=== PATIENT | female | born 1980 | race Asian ===

== ENCOUNTER 2018-03-12 07:57 | Outpatient (CLI) | payer OTHER ==
--- NOTE | 2018-03-12 10:16 | ULT ---
SONOGRAM ABDOMEN COMPLETE: Date: 03/12/18 HISTORY: Abnormal liver function tests. FINDINGS: Gallbladder has a normal appearance without evidence of stones. Common duct is 0.3 cm. Liver unremark able without focal mass or intrahepatic biliary dilatation. No free fluid. The spleen, kidneys, and v isualized portions of the abdominal aorta, IVC, and pancreas have a normal appearance. IMPRESSION: No significant abnormalities are demonstrated. POS: TPC
== END 2018-03-12 07:58 | disposition home or self-care (01) ==
LOC: SCSULT 07:57
PROVIDERS: ATTEND Family Medicine
DX: R79.89 Other specified abnormal findings of blood chemistry (principal)
CPT/HCPCS: 76700

== ENCOUNTER 2018-06-09 13:46 | Inpatient (IN) | payer OTHER ==
[2018-06-09 14:35] LABS: Bilirubin Negative (Negative); Blood, Urine Moderate (Negative); Clarity Clear (Clear); Glucose, Urine (Dipstick) Negative (Negative); Leukocyte Negative (Negative); Nitrite Negative (Negative); Protein, Urine (Dipstick) Trace mg/dL (Neg-Trace); Urobilinogen 0.2 mg/dL (0.2-1.0)
[2018-06-09 14:38] LABS: Pregnancy Test - Urine (BHCG) Negative (Negative); Pregu Control Background? CLEAR/WHITE (CLR/WHITE); Pregu Control Bar Appear? YES (CONTROL BAR)
[2018-06-09 14:40] LABS: Bacteria/HPF None Seen HPF (None Seen); RBC/HPF 0-3 HPF (0-3); Squamous Epithelial 0-3 HPF (0-3); WBC/HPF 0-3 HPF (0-3)
[2018-06-09 14:48] LABS: ALT (SGPT) 132 U/L (8-55); AST (SGOT) 119 U/L (5-34); Albumin 3.6 g/dL (3.5-5.0); Alkaline Phosphatase 90 U/L (40-150); Anion Gap 13 mmol/L (10-20); BUN (Urea Nitrogen) 6 mg/dL (7.0-18.7); Bilirubin, Total 0.5 mg/dL (0.2-1.2); Calc. Creatinine Clearance 0 mL/min (70-130); Calcium 8.9 mg/dL (7.8-10.44); Carbon Dioxide 24 mmol/L (22-29); Chloride 100 mmol/L (98-107); Estimated GFR-MDRD Greater than 90; Globulin 4.8 g/dL (2.4-3.5); Glucose 143 mg/dL (70-105); Lipase 19 U/L (8-78); Potassium 3.7 mmol/L (3.5-5.1); Protein, Total 8.4 g/dL (6.0-8.3); Sodium 133 mmol/L (136-145)
[2018-06-09 14:50] LABS: #Basophils 0.1 thou/uL (0.0-0.2); #Lymphocytes 0.2 thou/uL (1.20-3.40); #Monocytes 0.2 thou/uL (0.11-0.59); #Neutrophils 7.1 thou/uL (1.40-6.50); %Basophils 0.7 % (0.0-1.0); %Lymphocytes 2.7 % (21.0-51.0); %Monocytes 2.9 % (0.0-10.0); %Neutrophils 93.7 % (42.0-75.0); Anisocytosis SLIGHT = 6-15 cells (100X) (0-5/hpf); Band 18 % (5-11); Elliptocytes SLIGHT = 2-5 cells (100X) (0-1/hpf); Hemoglobin 11.1 g/dL (12.0-16.0); Hypochromia SLIGHT = 6-15 cells (100X) (0-5/hpf); MDiff Complete? YES; Macrocytosis SLIGHT = 6-15 cells (100X) (0-5/hpf); Mean Corpuscular HGB CONC 30.6 g/dL (32.0-36.0); Mean Corpuscular Hemoglobin 22.1 pg (27.0-31.0); Mean Corpuscular Volume 72.1 fL (78.0-98.0); Mean Platelet Volume 9.2 fL (7.4-10.4); Microcytosis SLIGHT = 6-15 cells (100X) (0-5/hpf); Monocytes 2 % (0-10); Neutrophil 80 % (42-75); PLT Morphology Comment Appears Decreased; Platelet Count 137 thou/uL (130-400); Polychromasia SLIGHT = 2-3 cells (100X) (0-2/hpf); RBC Distribution Width 14.8 % (11.5-14.5); Red Blood Cell (RBC) Count 5.04 mill/uL (4.20-5.40); Tear Drops SLIGHT = 2-5 cells (100X) (0-1/hpf); White Blood Cell (WBC) Count 7.5 thou/uL (4.8-10.8)
--- NOTE | 2018-06-09 15:02 | RAD ---
CHEST TWO VIEW 06/09/18 HISTORY: Fever. COMPARISON: Chest two view from 2013. FINDINGS: Although faint, there appears to be some mild reticulonodular opacities throughout the lungs bilatera lly. No pneumothorax. No large effusion. The cardiac silhouette and mediastinal contours are similar. IMPRESSION: Faint reticulonodular opacities throughout the lungs may reflect early infection. POS: TPC
[2018-06-09 18:04] VITALS: BMI 26.4
[2018-06-09] MEDS ORDERED: Acetaminophen 325 MG TAB PO PRN (18:20)
[2018-06-09] MEDS: Sodium Chloride 0.9% 1,000 ML IV SCH (18:37)
[2018-06-09 18:39] LABS: Lactic Acid 2.1 mmol/L (0.5-2.2)
[2018-06-09] MEDS: Vancomycin HCl 1 GM in Premix Bag 1 BAG IVPB SCH (19:58)
[2018-06-10] MEDS: Sodium Chloride 0.9% 1,000 ML IV SCH (01:21)
--- NOTE | 2018-06-10 02:02 | HP ---
CHIEF COMPLAINT: Fever. 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 She also is on sildenafil, does suggest she has some pulmonary hypertension. She has been on longstanding Plaquenil and Medrol and states she has never been on a biological agent. The patient presented today to the emergency department. She reports to me that she has actually been having relapsing fevers and chills that will occur and then resolve immediately when she takes some Tylenol. This will not recur again for another 10-15 days. At that time, she takes more Tylenol and fever abates for another 10-15 days. This has been going on since March. Today, however, the patient noted that her heart rate rather than going up to around 100 with her fever actually went up to the 130s, so she presented to the emergency department. She has had no other symptoms associated with this other than she is developing some erythema along the right jaw line and under her chin and she has a small skin lesion that is superficially ulcerated in the left anterior chest. She has no chest pain, cough or shortness of breath and denies any dysphagia. REVIEW OF SYSTEMS: Notable for only modest weight loss; however, she reports that she continues to eat quite well. She has had no other symptoms except for those things related to her rheumatoid. PAST MEDICAL HISTORY: Notable for the rheumatoid arthritis and hypothyroidism. She also has the Raynaud's phenomenon. SURGICAL HISTORY: None. SOCIAL HISTORY: Patient denies alcohol, tobacco or drug use. She is . Her would be her surrogate decision maker should that become necessary and she is a F[employer]. She is primarily followed by Dr. Darling locally. Her smt technician is Dr. Perla Sams in the [facility] area in [place]. FAMILY HISTORY: Her mother has some hypertension. Her father remains healthy. ALLERGIES: None. MEDICATIONS: Medrol 4 mg p.o. daily, sildenafil 20 mg p.o. daily, levothyroxine 100 mcg every day, Plaquenil 200 mg p.o. daily. PHYSICAL EXAMINATION: VITAL SIGNS: Temperature is 100.0, pulse 110, respirations 16, O2 sat 100% on room air, BP 131/85. GENERAL APPEARANCE: Age appropriate female. She is in no distress. She is awake, alert, oriented, pleasant, cooperative. HEENT: PERRL. No OP lesions. NECK: Supple and symmetric without lymphadenopathy. CARDIOVASCULAR: Tachycardic without murmurs, gallops or rubs. CHEST: Clear bilaterally with no significant wheezes or rales. ABDOMEN: Soft, nontender, nondistended with positive bowel sounds. No masses, no organomegaly. EXTREMITIES: Warm and dry without edema. She has gloves on both hands and appears to have decent circulation presently. SKIN: There is some faint erythema, which is nonblanching and appears to be somewhat subcutaneous along the right jawline and under the chin area. This is nontender and nonraised. There is also a 1 cm ulcerated, pathergic type lesion in the left anterior shoulder area with no halo of erythema or evidence of infection. LABORATORY DATA: White blood cell count 7.5, hemoglobin 11.1, platelets 137. She has 18% bands. She has a number of atypical cells with microcytes, elliptocytes some anisocytosis, macrocytosis, polychromasia and teardrop cells. Sodium is 133, potassium 3.7, chloride 100, CO2 of 24, BUN 6, creatinine 0.65 , glucose 143, lactic acid 3.1 with repeat 2.1, calcium 8.9, AST is 119, ALT 133 , total serum protein is 8.4. Urinalysis shows moderate blood, but 0-3 red cells. test negative. Flu A and B are negative. Chest x-ray shows a faint reticular nodular pattern. ASSESSMENT AND PLAN: 1. Febrile illness with relapsing fevers in a patient with immune suppression. There is no obvious source of significant infection at present. She has some fine faint reticular nodular pattern on her chest x-ray. This certainly may represent simply some rheumatoid lung. She is on medication, indicate maybe she has some pulmonary hypertension. We will give her some fluids and repeat the chest x-ray in the morning. In the interim, we will continue to provide antibiotics. She received a dose of Levaquin. We will add some vancomycin. We will also consult Infectious Disease giving the high risk of infection in a patient with immune suppression. 2. Elevated liver enzymes, unclear etiology. We will obtain an ultrasound. Actually in reviewing the records, the patient had an ultrasound obtained by Dr. Darling in February for elevated liver enzymes, which showed no significant abnormalities at that time. Suspect this is chronic and may be related to her autoimmune disease or the medications that she is taking. 3. Rheumatoid arthritis. Continue with the Plaquenil and steroids. CAMILLE
[2018-06-10] MEDS: Levothyroxine Sodium 100 MCG TAB PO SCH (05:32)
[2018-06-10 05:39] LABS: Anion Gap 9 mmol/L (10-20); BUN (Urea Nitrogen) 4 mg/dL (7.0-18.7); Calc. Creatinine Clearance 129 mL/min (70-130); Calcium 7.5 mg/dL (7.8-10.44); Carbon Dioxide 22 mmol/L (22-29); Chloride 110 mmol/L (98-107); Estimated GFR-MDRD Greater than 90; Glucose 98 mg/dL (70-105); Potassium 3.6 mmol/L (3.5-5.1); Sodium 137 mmol/L (136-145)
[2018-06-10 06:27] LABS: #Lymphocytes 0.5 thou/uL (1.20-3.40); #Neutrophils 3.1 thou/uL (1.40-6.50); %Eosinophils 0.2 % (0.0-10.0); %Lymphocytes 13.4 % (21.0-51.0); %Monocytes 0.6 % (0.0-10.0); %Neutrophils 85.8 % (42.0-75.0); Hypochromia SLIGHT = 6-15 cells (100X) (0-5/hpf); MDiff Complete? YES; Mean Corpuscular Hemoglobin 22.6 pg (27.0-31.0); Mean Platelet Volume 7.4 fL (7.4-10.4); Microcytosis SLIGHT = 6-15 cells (100X) (0-5/hpf); PLT Morphology Comment Appears Decreased; Platelet Count 111 thou/uL (130-400); RBC Distribution Width 16.3 % (11.5-14.5); Tear Drops SLIGHT = 2-5 cells (100X) (0-1/hpf); White Blood Cell (WBC) Count 3.6 thou/uL (4.8-10.8)
[2018-06-10] MEDS: methylPREDNISolone 4 mg Tablet PO SCH (07:22)
[2018-06-10] MEDS: Sildenafil Citrate 20 MG TAB PO SCH ×3 (07:22→20:27)
[2018-06-10] MEDS: Hydroxychloroquine Sulfate 200 MG TAB PO SCH (07:22)
[2018-06-10] MEDS: Vancomycin HCl 1 GM in Premix Bag 1 BAG IVPB SCH ×2 (07:23→20:27)
--- NOTE | 2018-06-10 08:43 | RAD ---
PA AND LATERAL CHEST: INDICATIONS: History of fever. Immunosuppression. FINDINGS: Patchy reticulonodular opacities throughout both lungs are stable. No definite pleural effusion is e vident. Mild cardiomegaly is stable. No acute osseous abnormality is evident. IMPRESSION: Persistent reticulonodular opacities in both lungs, suspicious for bronchiolitis or other atypical in fectious process. POS: TPC
[2018-06-10] MEDS ORDERED: Chloraseptic Spray 180 ml Bottle PO PRN (08:54)
[2018-06-10] MEDS ORDERED: Temazepam 15 MG CAP PO PRN (08:54)
[2018-06-10] MEDS ORDERED: Artificial Tears 18 DROP/0.9 ML EA EYE PRN (08:54)
[2018-06-10] MEDS ORDERED: Loratadine 10 MG TAB PO PRN (08:54)
[2018-06-10] MEDS ORDERED: Senokot 8.6 MG TAB PO PRN (08:54)
[2018-06-10] MEDS ORDERED: Diabetic Tussin 200 MG/10 ML UDCUP PO PRN (08:54)
[2018-06-10] MEDS ORDERED: Ondansetron HCl/PF 4 MG/2 ML Vial IVP PRN (08:54)
[2018-06-10] MEDS ORDERED: Eucerin (Mineral Oil/Petrolatum,White) 30 gm Jar TOP PRN (08:54)
[2018-06-10] MEDS ORDERED: Milk Of Magnesia 30 ML UDCUP PO PRN (08:54)
[2018-06-10] MEDS ORDERED: Ondansetron ODT 4 MG TAB PO PRN (08:54)
[2018-06-10] MEDS ORDERED: Acetaminophen 325 MG TAB PO PRN (08:54)
[2018-06-10] MEDS ORDERED: Sodium Chloride 0.65% Nasal 44 ML BOT EA NARE PRN (08:54)
[2018-06-10] MEDS ORDERED: HYDROcodone/Acetaminophen 5/325 mg Tablet PO PRN (08:54)
[2018-06-10] MEDS ORDERED: Mag-Al 1200 mg/1200 mg/30 ML UDCUP PO PRN (08:54)
[2018-06-10] MEDS ORDERED: Calcium Carbonate 500 MG ChewTAB PO PRN (08:54)
[2018-06-10] MEDS: Cefepime 2 GM in Sodium Chloride 0.9% 100 ML IVPB SCH ×2 (09:47→22:43)
[2018-06-10] MEDS: Saccharomyces boulardii 250 MG CAP PO SCH (09:47)
[2018-06-10] MEDS: Famotidine 20 MG TAB PO SCH ×2 (09:47→21:33)
[2018-06-10 09:54] LABS: Legionella Urinary Ag Negative (Negative); Strep pneumo Urine Ag NEGATIVE (NEGATIVE)
[2018-06-10] MEDS ORDERED: ISOVUE-370 76%-LOCM 1 ML ONE (10:14)
--- NOTE | 2018-06-10 11:21 | PDOC.PN ---
- Subjective Encounter Start Date: 06/10/18 Encounter Start Time: 09:40 -: old records requested/rev Patient seen and examined. No new complaints. No overnight events she has almost 1 month h/o intermittent fever, chills and tachycardia, not on antibiotics before, she is chronically immunosuppresed for her autoimmnue disease - Objective MAR Reviewed: Yes Vital Signs & Weight: Vital Signs (12 hours) Temp Pulse Resp BP Pulse Ox 06/10/18 07:30 99.4 F 102 H 18 128/86 100 06/10/18 04:32 98.5 F 80 16 121/78 98 06/10/18 00:00 98.1 F 96 20 121/79 99 06/09/18 23:34 98.5 F 90 99 Weight Weight 135 lb 7 oz Result Diagrams: 06/10/18 04:46 06/10/18 04:46 Radiology Reviewed by me: Yes (reticulonodular infiltration noted) Phys Exam - Physical Examination Constitutional: NAD HEENT: PERRLA, moist MMs, sclera anicteric Neck: no JVD, supple Respiratory: no wheezing, no rhonchi coarse sound Cardiovascular: RRR, no significant murmur, no rub tachycardia Gastrointestinal: soft, non-tender, no distention, positive bowel sounds Musculoskeletal: no edema, pulses present Neurological: non-focal, normal sensation, moves all 4 limbs Psychiatric: normal affect, A&O x 3 Skin: no rash, normal turgor Dx/Plan (1) Lactic acidosis Code(s): E87.2 - ACIDOSIS Status: Resolved (2) Pancytopenia Code(s): D61.818 - OTHER PANCYTOPENIA Status: Acute (3) Reticulonodular infiltrate present on imaging of chest Code(s): R91.8 - OTHER NONSPECIFIC ABNORMAL FINDING OF LUNG FIELD Status: Acute Comment: fungal vs nocardio, vs inflammatory process (4) Sepsis Code(s): A41.9 - SEPSIS, UNSPECIFIED ORGANISM Status: Acute (5) Transaminitis Code(s): R74.0 - NONSPEC ELEV OF LEVELS OF TRANSAMNS & LACTIC ACID DEHYDRGNSE Status: Acute Comment: ? 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 Review of Systems - Review of Systems Constitutional: fever, chills, sweats, malaise. negative: weakness, other ENT: negative: Ear Pain, Ear Discharge, Nose Pain, Nose Discharge, Nose Congestion, Mouth Pain, Mouth Swelling, Throat Pain, Throat Swelling, Other Respiratory: Cough. negative: Dry, Shortness of Breath, Hemoptysis, SOB with Excertion, Pleuritic Pain, Sputum, Wheezing Cardiovascular: negative: chest pain, palpitations, orthopnea, paroxysmal nocturnal dyspnea, edema, light headedness, other Gastrointestinal: negative: Nausea, Vomiting, Abdominal Pain, Diarrhea, Constipation, Melena, Hematochezia, Other Genitourinary: negative: Dysuria, Frequency, Incontinence, Hematuria, Retention , Other Musculoskeletal: negative: Neck Pain, Shoulder Pain, Arm Pain, Back Pain, Hand Pain, Leg Pain, Foot Pain, Other Skin: negative: Rash, Lesions, Rl, Bruising, Other - Medications/Allergies Allergies/Adverse Reactions: Allergies Allergy/AdvReac Type Severity Reaction Status Date / Time No Known Allergies Allergy Verified 06/09/18 18:05 Medications: Current Medications Acetaminophen (Tylenol) 650 mg PO Q4H PRN PRN Reason: Headache/Fever or Mild Pain Hydrocodone Bitart/Acetaminophen ([place] 5/325) 1 tab PO Q4H PRN PRN Reason: Moderate Pain (4-6) Al Hydroxide/Mg Hydroxide (Maalox) 15 ml PO Q4H PRN PRN Reason: Heartburn or Indigestion Artificial Tears (Tears Naturale) 0 drop EA EYE PRN PRN PRN Reason: Dry Eyes Calcium Carbonate (Tums) 1,000 mg PO Q4H PRN PRN Reason: Heartburn or Indigestion Famotidine (Pepcid) 20 mg PO BID [facility] Last Admin: 06/10/18 09:47 Dose: 20 mg Guaifenesin (Robitussin Sf) 200 mg PO Q4H PRN PRN Reason: Cough Hydroxychloroquine Sulfate (Plaquenil) 200 mg PO DAILY [facility] Last Admin: 06/10/18 07:22 Dose: 200 mg Vancomycin HCl 1 gm/ Device 200 mls @ 200 mls/hr IVPB 0800,2000 [facility] Last Admin: 06/10/18 07:23 Dose: 200 mls Cefepime HCl 2 gm/ Sodium (Chloride) 100 mls @ 200 mls/hr IVPB Q12HR [facility] Last Admin: 06/10/18 09:47 Dose: 100 mls Levothyroxine Sodium (Synthroid) 100 mcg PO 0600 [facility] Last Admin: 06/10/18 05:32 Dose: 100 mcg Loratadine (Claritin) 10 mg PO DAILYPRN PRN PRN Reason: Sinus Symptoms Magnesium Hydroxide (Milk Of Magnesium) 30 ml PO DAILYPRN PRN PRN Reason: Constipation Methylprednisolone (Medrol) 4 mg PO DAILY [facility] Last Admin: 06/10/18 07:22 Dose: 4 mg Mineral Oil/White Petrolatum (Eucerin Cream) 0 gm TOP BIDPRN PRN PRN Reason: Dry Skin Ondansetron HCl (Zofran Odt) 4 mg PO Q6H PRN PRN Reason: Nausea/Vomiting Ondansetron HCl (Zofran) 4 mg IVP Q6H PRN PRN Reason: Nausea/Vomiting Phenol (Chloraseptic [place] 180 Ml Bot) 0 ml PO PRN PRN PRN Reason: Sore Throat Saccharomyces Boulardii (Florastor) 250 mg PO DAILY [facility] Last Admin: 06/10/18 09:47 Dose: 250 mg Senna (Senokot) 2 tab PO HSPRN PRN PRN Reason: Constipation Sildenafil Citrate (Revatio) 20 mg PO HS [facility] Sodium Chloride (Flush - Normal Saline) 10 ml IVF Q12HR [facility] Last Admin: 06/10/18 07:54 Dose: Not Given Sodium Chloride (Flush - Normal Saline) 10 ml IVF PRN PRN PRN Reason: Saline Flush Sodium Chloride ([place]er Nasal [place] 0.65%) 0 ml EA NARE QIDPRN PRN PRN Reason: Nasal Congestion Temazepam (Restoril) 15 mg PO HSPRN PRN PRN Reason: Insomnia
[2018-06-10] MEDS ORDERED: Ibuprofen 200 MG TAB PO PRN ×2 (11:55→15:21)
[2018-06-10 15:01] LABS: Ferritin 52.98 ng/mL (10-291)
[2018-06-10 15:15] LABS: HBCM Index 0.25 S/CO (0-0.79); HBSAg Index 0.23 S/CO (0-0.99); Hep A IgM AB Non-Reactive (NonReactive); Hep A IgM S/CO 0.22 S/CO (0-0.79); Hep B Surf Ag Non-Reactive S/CO (NonReactive); Hep C IgG Ab Non-Reactive (NonReactive); Hep C Index 0.15 S/CO (0-0.79); Hepatitis B Core IGM Abs Non-Reactive (NonReactive)
--- NOTE | 2018-06-10 16:24 | CT ---
CT CHEST AND ABDOMEN AND PELVIS PERFORMED WITH INTRAVENOUS CONTRAST ENHANCEMENT: HISTORY: Diffuse pain. Sepsis. FINDINGS: CHEST: The lungs show some chronic appearing changes with a slightly oligemic appearance to the lung apices. The reticulonodular opacities seen on the chest x-ray do not correspond to any definite fin dings that would suggest any type of acute infiltrate. There is evidence of old granulomatous diseas e with calcified granulomas and calcified right paratracheal lymph nodes. The thoracic aorta is norm al in caliber. Slightly prominent left axillary lymph nodes, a somewhat nonspecific finding. If there is any suspic ion for breast pathology, consideration for mammography would be suggested. ABDOMEN: The liver is within normal limits in size. It does show suggestion of fatty change. The s pleen is prominent. It only measures 8.6 cm in length but, in transverse dimension, it measures as m uch as 12 cm. The pancreas shows no mass or ductal dilatation. There is some questionable fluid in the gallbladder fossa versus some minimal wall edema. If the patient has symptoms, ultrasound would be suggested for assessment. The right and left adrenal glands are normal in appearance. The right and left kidneys are normal in size. There is right-sided hydronephrosis with a prominent right extrarenal pelvis, immediately tap ering to a normal caliber ureter, without any obstructing stone. There had been dilatation of the ri ght collecting system on a previous 2009 study, but this was in conjunction with a dilated ureter and a distended bladder. This may represent a UPJ type obstruction, although there is no renal cortical thinning associated with this finding. The left renal pelvis is minimally prominent. There is no s ignificant periaortic or mesenteric adenopathy. No bowel wall abnormalities are seen. PELVIS: There are some areas of altered echogenicity associated with the uterus, probably related to fibroids. There is no evidence of adenopathy or mass. No signs of any free fluid. The appendix is normal in appearance. IMPRESSION: 1. Fatty changes of the liver with some borderline spleen size. 2. Questionable minimal fluid in the gallbladder fossa or possibly some gallbladder wall thickening. If indicated, ultrasound would be recommended. 3. Mild right-sided hydronephrosis with some dilatation of the calyces and a very prominent renal pe lvis but normal caliber ureter. This could be on the basis of some element of ureteropelvic junction type obstruction, although there is no renal cortical thinning. 4. Normal appendix. 5. Suggestion of some uterine fibroids. 6. Other incidental findings as noted above. POS: TREVOR
[2018-06-10 20:11] LABS: Complement-C4 Less than 2.90 mg/dL (15-57)
[2018-06-10 20:28] LABS: HIV (1/2) Antibody/Antigen Non-Reactive (NonReactive); HIV 1/2 INDEX 0.12 S/CO (<1.00)
[2018-06-11] MEDS: Cefepime 2 GM in Sodium Chloride 0.9% 100 ML IVPB SCH ×2 (00:30→12:55)
[2018-06-11] MEDS: Levothyroxine Sodium 100 MCG TAB PO SCH (06:04)
[2018-06-11 08:00] LABS: Vancomycin, Trough 7.9 ug/mL
--- NOTE | 2018-06-11 08:03 | CON ---
DATE OF CONSULTATION: 06/11/2018 REASON FOR CONSULTATION: Fever, unknown etiology. HISTORY OF PRESENT ILLNESS: A 38-year-old who has history of rheumatoid arthritis and Raynaud's, possible pulmonary hypertension, who had been managed with Plaquenil, low dose methylprednisolone and has had now recurrent temperature elevation up to 101 to 102 for the past 2 months. Some tachycardia associated with it. Otherwise, no headaches, no visual symptoms, sore throat, odynophagia, dysphagia, no back pain. She noticed a small skin ulcer in the anterior chest area, some erythema in the jaw line skin. No cough or sputum production, maybe mild dyspnea. No abdominal pain or diarrhea. No genitourinary symptoms. No change in her usual joint symptoms. PAST MEDICAL HISTORY: Rheumatoid arthritis, hypothyroidism, Raynaud's, possible pulmonary hypertension. PAST SURGICAL HISTORY: Negative. SOCIAL HISTORY: Originally from [place], has been in the [place] for the past 17 years and has not visited [place] since. 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 Never a smoker. FAMILY HISTORY: Hypertension. ALLERGIES: None. MEDICATION LIST: Methylprednisolone, sildenafil, levofloxacin, Plaquenil. PHYSICAL EXAMINATION: VITAL SIGNS: Here T-max of 100, she is now 98.1. Other vital signs are normal. SKIN: Not particularly remarkable. She has a little ulcerated area in the left second toe at the tip. I am sure if there is some bone exposure at the tip of this lesion and there is an ulcerated area at the center of her chest wall anteriorly over the manubrium sternum. No lymphadenopathy. HEENT: Ocular movements conjugate. Oral cavity moist. Numerous teeth in place with quite a bit of gum disease, gum resorption, periodontitis. NECK: No jugular vein distention, no thyromegaly. LUNGS: Symmetric clear breath sounds. HEART: S1, S2, regular rate without murmurs. ABDOMEN: Soft, not distended or tender. No ascites, no bladder distension. EXTREMITIES: I do not see any obvious evidence of joint inflammatory activity at this time. Pulses 1+ in dorsalis pedis. No edema. Moving extremities equally. NEUROLOGIC: Cognitive function appears to be intact. LABORATORY DATA: White cell count 7.5 to 3.6, hemoglobin 11 and 10, MCV 73, platelets 137 and 111, there are 93 and then 85% neutrophils. Sodium 137, creatinine 0.57, AST 119, ALT 132, albumin 3.6. CRP 1.46. Ferritin was 62. Urinalysis was fairly normal except for moderate blood. Complement was low at 37. Complement C4 less than 2.9. IMAGING STUDIES: Include a CT of abdomen and pelvis and chest, there are fatty changes of the liver, minimal fluid, gallbladder fossa, mild right-sided hydronephrosis and some dilatation of calluses, normal appendix, fibroids. ASSESSMENT: 1. Rheumatoid arthritis diagnosed elsewhere on Plaquenil and low dose of methylprednisolone. 2. Sildenafil for possible pulmonary hypertension. 3. Two month history of recurrent fevers. 4. Ulcers in the anterior chest skin and the tip of the second left toe. 5. Hypocomplementemia. DISCUSSION: The differential diagnoses includes an autoimmune syndrome with vasculitis associated with her underlying rheumatoid arthritis or an additional features with possible development of some overlap syndrome with systemic sclerosis or systemic lupus erythematosus versus infectious process or malignancy, particularly myeloproliferative disorder and myelodysplastic syndrome. Autoimmune syndrome with vasculitis is the more likely scenario. Disseminated tuberculosis is always a concern in patients from that part of the world due to reactivation disease in extra pulmonary sites. We will submit serologies for vasculitities, SLE, the complement has been already resulted in it suggests activation of immune complex deposition as probably reflects the activity of the underlying autoimmune process causing the fever. Endocarditis is less likely, but we will continue monitoring her blood cultures to the end. Definitely if they are positive, then would pretty much settle the diagnosis, but that is not likely. A skin biopsy of the chest ulcer particularly of the skin surrounding the ulcerated lesion would be very important to provide subsidies for diagnosis, particularly in the face of the possibility of vasculitis. JSD
[2018-06-11] MEDS: Famotidine 20 MG TAB PO SCH ×2 (08:52→20:34)
[2018-06-11] MEDS: Hydroxychloroquine Sulfate 200 MG TAB PO SCH (08:53)
[2018-06-11] MEDS: methylPREDNISolone 4 mg Tablet PO SCH (08:54)
[2018-06-11] MEDS: Saccharomyces boulardii 250 MG CAP PO SCH (08:54)
[2018-06-11] MEDS: Vancomycin HCl 1 GM in Premix Bag 1 BAG IVPB SCH (08:56)
[2018-06-11] MEDS ORDERED: Vancomycin HCl 500 MG in Sodium Chloride 0.9% 100 ML IVPB SCH (10:00)
--- NOTE | 2018-06-11 11:39 | PDOC.PN ---
- Subjective Encounter Start Date: 06/11/18 Encounter Start Time: 09:00 this morning she felt again chills and she had fever and tachycardia - Objective MAR Reviewed: Yes Vital Signs & Weight: Vital Signs (12 hours) Temp Pulse Resp BP BP Pulse Ox 06/11/18 11:00 99.8 F H 115 H 16 122/77 97 06/11/18 08:00 100.8 F H 97 18 132/74 100 06/11/18 04:00 98.1 F 97 16 114/74 100 06/11/18 00:10 97.3 F L 97 16 104/69 100 Weight Weight 135 lb 7 oz I&O: 06/10/18 06/11/18 06/12/18 06:59 06:59 06:59 Intake Total 1100 Balance 1100 Result Diagrams: 06/10/18 04:46 06/10/18 04:46 Radiology Reviewed by me: Yes (CT chest abdo and pelvis reviewed) Phys Exam - Physical Examination Constitutional: NAD HEENT: PERRLA, moist MMs, sclera anicteric Neck: no JVD, supple Respiratory: no wheezing, no rales, no rhonchi Cardiovascular: RRR, no significant murmur, no rub Gastrointestinal: soft, non-tender, no distention, positive bowel sounds Musculoskeletal: no edema, pulses present Neurological: non-focal, normal sensation, moves all 4 limbs Lymphatic: no nodes Psychiatric: normal affect, A&O x 3 Skin: normal turgor Dx/Plan (1) Lactic acidosis Code(s): E87.2 - ACIDOSIS Status: Resolved (2) Pancytopenia Code(s): D61.818 - OTHER PANCYTOPENIA Status: Acute (3) Reticulonodular infiltrate present on imaging of chest Code(s): R91.8 - OTHER NONSPECIFIC ABNORMAL FINDING OF LUNG FIELD Status: Ruled-out Comment: fungal vs nocardio, vs inflammatory process (4) Sepsis Code(s): A41.9 - SEPSIS, UNSPECIFIED ORGANISM Status: Acute Qualifiers: Sepsis type: sepsis due to unspecified organism Qualified Code(s): A41.9 - Sepsis, unspecified organism (5) Transaminitis Code(s): R74.0 - NONSPEC ELEV OF LEVELS OF TRANSAMNS & LACTIC ACID DEHYDRGNSE Status: Acute Comment: ? 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 TISSUE Status: Chronic (9) Rheumatoid arthritis Code(s): M06.9 - RHEUMATOID ARTHRITIS, UNSPECIFIED Status: Chronic (10) Systemic sclerosis Code(s): M34.9 - SYSTEMIC SCLEROSIS, UNSPECIFIED Status: Chronic - Plan cont current plan of care, continue antibiotics * given her low complements, suspecting underlying active autoimmnue process, pauly be that contributing to her recurrent fever * but she is on chronically on steroid, so possibility of infection needs to be excluded before giving high dose steroid * she will need steroid sparing immunosuppressive therapy with her rheumatology * will follow up on send out test result by dr marcus * currently on empiric cefepime and vancomycin * so far all culture negative * medication reviewed as below * symptomatic treatment. Review of Systems - Review of Systems Constitutional: fever, chills. negative: sweats, weakness, malaise, other ENT: negative: Ear Pain, Ear Discharge, Nose Pain, Nose Discharge, Nose Congestion, Mouth Pain, Mouth Swelling, Throat Pain, Throat Swelling, Other Respiratory: negative: Cough, Dry, Shortness of Breath, Hemoptysis, SOB with Excertion, Pleuritic Pain, Sputum, Wheezing Cardiovascular: negative: chest pain, palpitations, orthopnea, paroxysmal nocturnal dyspnea, edema, light headedness, other Gastrointestinal: negative: Nausea, Vomiting, Abdominal Pain, Diarrhea, Constipation, Melena, Hematochezia, Other Genitourinary: negative: Dysuria, Frequency, Incontinence, Hematuria, Retention , Other Musculoskeletal: negative: Neck Pain, Shoulder Pain, Arm Pain, Back Pain, Hand Pain, Leg Pain, Foot Pain, Other Skin: negative: Rash, Lesions, Rl, Bruising, Other - Medications/Allergies Allergies/Adverse Reactions: Allergies Allergy/AdvReac Type Severity Reaction Status Date / Time No Known Allergies Allergy Verified 06/09/18 18:05 Medications: Current Medications Acetaminophen (Tylenol) 650 mg PO Q4H PRN PRN Reason: Headache/Fever or Mild Pain Hydrocodone Bitart/Acetaminophen ([place] 5/325) 1 tab PO Q4H PRN PRN Reason: Moderate Pain (4-6) Al Hydroxide/Mg Hydroxide (Maalox) 15 ml PO Q4H PRN PRN Reason: Heartburn or Indigestion Artificial Tears (Tears Naturale) 0 drop EA EYE PRN PRN PRN Reason: Dry Eyes Calcium Carbonate (Tums) 1,000 mg PO Q4H PRN PRN Reason: Heartburn or Indigestion Famotidine (Pepcid) 20 mg PO BID [facility] Last Admin: 06/11/18 08:52 Dose: 20 mg Guaifenesin (Robitussin Sf) 200 mg PO Q4H PRN PRN Reason: Cough Hydroxychloroquine Sulfate (Plaquenil) 200 mg PO DAILY [facility] Last Admin: 06/11/18 08:53 Dose: 200 mg Cefepime HCl 2 gm/ Sodium (Chloride) 100 mls @ 200 mls/hr IVPB 1200,2359 [facility] Last Admin: 06/11/18 00:30 Dose: 100 mls Vancomycin HCl 500 mg/ Sodium (Chloride) 100 mls @ 100 mls/hr IVPB NOW [facility] Stop: 06/11/18 12:00 Last Admin: 06/11/18 11:35 Dose: 100 mls Vancomycin HCl 1.5 gm/ Sodium (Chloride) 300 mls @ 200 mls/hr IVPB 0900,2100 [facility] Ibuprofen (Motrin) 400 mg PO Q6H PRN PRN Reason: Fever/Mild Pain Ibuprofen (Motrin) 400 mg PO Q6H PRN PRN Reason: FEVER/PAIN Last Admin: 06/11/18 09:36 Dose: 400 mg Levothyroxine Sodium (Synthroid) 100 mcg PO 0600 [facility] Last Admin: 06/11/18 06:04 Dose: 100 mcg Loratadine (Claritin) 10 mg PO DAILYPRN PRN PRN Reason: Sinus Symptoms Magnesium Hydroxide (Milk Of Magnesium) 30 ml PO DAILYPRN PRN PRN Reason: Constipation Methylprednisolone (Medrol) 4 mg PO DAILY [facility] Last Admin: 06/11/18 08:54 Dose: 4 mg Mineral Oil/White Petrolatum (Eucerin Cream) 0 gm TOP BIDPRN PRN PRN Reason: Dry Skin Miscellaneous Medication (Pharmacy To Dose) 0 each IVPB PRN PRN PRN Reason: [facility] Pharmacy to Dose Ondansetron HCl (Zofran Odt) 4 mg PO Q6H PRN PRN Reason: Nausea/Vomiting Ondansetron HCl (Zofran) 4 mg IVP Q6H PRN PRN Reason: Nausea/Vomiting Phenol (Chloraseptic [place] 180 Ml Bot) 0 ml PO PRN PRN PRN Reason: Sore Throat Saccharomyces Boulardii (Florastor) 250 mg PO DAILY [facility] Last Admin: 06/11/18 08:54 Dose: 250 mg Senna (Senokot) 2 tab PO HSPRN PRN PRN Reason: Constipation Sildenafil Citrate (Revatio) 20 mg PO HS [facility] Last Admin: 06/10/18 20:27 Dose: 20 mg Sodium Chloride (Flush - Normal Saline) 10 ml IVF Q12HR [facility] Last Admin: 06/11/18 08:57 Dose: 10 ml Sodium Chloride (Flush - Normal Saline) 10 ml IVF PRN PRN PRN Reason: Saline Flush Sodium Chloride ([place] Nasal [place] 0.65%) 0 ml EA NARE QIDPRN PRN PRN Reason: Nasal Congestion Temazepam (Restoril) 15 mg PO HSPRN PRN PRN Reason: Insomnia
[2018-06-11] MEDS: Sildenafil Citrate 20 MG TAB PO SCH (20:24)
[2018-06-11] MEDS ORDERED: Cyanocobalamin (Vitamin B-12) 1,000 MCG TAB PO SCH (21:00)
[2018-06-11] MEDS ORDERED: Vancomycin HCl 1.5 GM in Sodium Chloride 0.9% 250 ML 300 ML IVPB SCH (21:00)
[2018-06-12] MEDS: Cefepime 2 GM in Sodium Chloride 0.9% 100 ML IVPB SCH ×2 (00:59→12:09)
[2018-06-12] MEDS: Levothyroxine Sodium 100 MCG TAB PO SCH (07:15)
[2018-06-12] MEDS ORDERED: Ferrous Sulfate 325 MG TAB PO SCH (08:00)
[2018-06-12] MEDS ORDERED: Calcium Carbonate + Vit D 1 TAB PO SCH (08:00)
[2018-06-12] MEDS ORDERED: Multivitamin W/ Minerals 1 TAB PO SCH (09:00)
[2018-06-12] MEDS: Hydroxychloroquine Sulfate 200 MG TAB PO SCH (10:10)
[2018-06-12] MEDS: Saccharomyces boulardii 250 MG CAP PO SCH (10:10)
[2018-06-12] MEDS: methylPREDNISolone 4 mg Tablet PO SCH (10:10)
[2018-06-12] MEDS: Famotidine 20 MG TAB PO SCH (10:12)
--- NOTE | 2018-06-12 11:31 | PDOC.PN ---
- Subjective Encounter Start Date: 06/12/18 Encounter Start Time: 09:40 Patient seen and examined. No new complaints. No overnight events - Objective MAR Reviewed: Yes Vital Signs & Weight: Vital Signs (12 hours) Temp Pulse Resp BP BP Pulse Ox 06/12/18 07:21 98.5 F 94 16 116/74 98 06/12/18 04:00 99.0 F 106 H 16 112/74 97 Weight Weight 135 lb 7 oz I&O: 06/11/18 06/12/18 06/13/18 06:59 06:59 06:59 Intake Total 1100 1120 Balance 1100 1120 Result Diagrams: 06/10/18 04:46 06/10/18 04:46 Phys Exam - Physical Examination Constitutional: NAD HEENT: PERRLA, moist MMs, sclera anicteric Neck: no JVD, supple Respiratory: no wheezing, no rales, no rhonchi Cardiovascular: RRR, no significant murmur, no rub Gastrointestinal: soft, non-tender, no distention, positive bowel sounds Musculoskeletal: no edema, pulses present Neurological: non-focal, normal sensation Psychiatric: normal affect, A&O x 3 Skin: no rash, normal turgor Dx/Plan (1) Lactic acidosis Code(s): E87.2 - ACIDOSIS Status: Resolved (2) Pancytopenia Code(s): D61.818 - OTHER PANCYTOPENIA Status: Acute (3) Reticulonodular infiltrate present on imaging of chest Code(s): R91.8 - OTHER NONSPECIFIC ABNORMAL FINDING OF LUNG FIELD Status: Ruled-out Comment: fungal vs nocardio, vs inflammatory process (4) Sepsis Code(s): A41.9 - SEPSIS, UNSPECIFIED ORGANISM Status: Acute Qualifiers: Sepsis type: sepsis due to unspecified organism Qualified Code(s): A41.9 - Sepsis, unspecified organism (5) Transaminitis Code(s): R74.0 - NONSPEC ELEV OF LEVELS OF TRANSAMNS & LACTIC ACID DEHYDRGNSE Status: Acute Comment: ? 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 Review of Systems - Review of Systems Eyes: negative: Pain, Vision Change, Conjunctivae Inflammation, Eyelid Inflammation, Redness, Other ENT: negative: Ear Pain, Ear Discharge, Nose Pain, Nose Discharge, Nose Congestion, Mouth Pain, Mouth Swelling, Throat Pain, Throat Swelling, Other Respiratory: negative: Cough, Dry, Shortness of Breath, Hemoptysis, SOB with Excertion, Pleuritic Pain, Sputum, Wheezing Cardiovascular: negative: chest pain, palpitations, orthopnea, paroxysmal nocturnal dyspnea, edema, light headedness, other Gastrointestinal: negative: Nausea, Vomiting, Abdominal Pain, Diarrhea, Constipation, Melena, Hematochezia, Other Genitourinary: negative: Dysuria, Frequency, Incontinence, Hematuria, Retention , Other Musculoskeletal: negative: Neck Pain, Shoulder Pain, Arm Pain, Back Pain, Hand Pain, Leg Pain, Foot Pain, Other - Medications/Allergies Allergies/Adverse Reactions: Allergies Allergy/AdvReac Type Severity Reaction Status Date / Time No Known Allergies Allergy Verified 06/09/18 18:05 Medications: Current Medications Acetaminophen (Tylenol) 650 mg PO Q4H PRN PRN Reason: Headache/Fever or Mild Pain Hydrocodone Bitart/Acetaminophen ([place] 5/325) 1 tab PO Q4H PRN PRN Reason: Moderate Pain (4-6) Al Hydroxide/Mg Hydroxide (Maalox) 15 ml PO Q4H PRN PRN Reason: Heartburn or Indigestion Artificial Tears (Tears Naturale) 0 drop EA EYE PRN PRN PRN Reason: Dry Eyes Bacitracin Zinc (Bacitracin) 1 pk TOP DAILY [facility] Calcium Carbonate (Tums) 1,000 mg PO Q4H PRN PRN Reason: Heartburn or Indigestion Calcium/Vitamin D (Caltrate 600 + Vit D) 1 tab PO BID-[facility] Last Admin: 06/12/18 10:11 Dose: 1 tab Cholecalciferol (Vitamin D3) 1,000 units PO [facility] Last Admin: 06/11/18 20:33 Dose: 1,000 units Cyanocobalamin (Vitamin B-12) 1,000 mcg PO HS [facility] Last Admin: 06/11/18 20:32 Dose: 1,000 mcg Famotidine (Pepcid) 20 mg PO BID [facility] Last Admin: 06/12/18 10:12 Dose: 20 mg Ferrous Sulfate (Feosol) 325 mg PO QAM-[facility] Last Admin: 06/12/18 10:11 Dose: 325 mg Guaifenesin (Robitussin Sf) 200 mg PO Q4H PRN PRN Reason: Cough Hydroxychloroquine Sulfate (Plaquenil) 200 mg PO DAILY [facility] Last Admin: 06/12/18 10:10 Dose: 200 mg Cefepime HCl 2 gm/ Sodium (Chloride) 100 mls @ 200 mls/hr IVPB 1200,2359 [facility] Last Admin: 06/12/18 00:59 Dose: 100 mls Ibuprofen (Motrin) 400 mg PO Q6H PRN PRN Reason: Fever/Mild Pain Ibuprofen (Motrin) 400 mg PO Q6H PRN PRN Reason: FEVER/PAIN Last Admin: 06/11/18 09:36 Dose: 400 mg Iron/Minerals/Multivitamins (Theragran M) 1 tab PO DAILY [facility] Last Admin: 06/12/18 10:11 Dose: 1 tab Levothyroxine Sodium (Synthroid) 100 mcg PO 0600 [facility] Last Admin: 06/12/18 07:15 Dose: 100 mcg Loratadine (Claritin) 10 mg PO DAILYPRN PRN PRN Reason: Sinus Symptoms Magnesium Hydroxide (Milk Of Magnesium) 30 ml PO DAILYPRN PRN PRN Reason: Constipation Methylprednisolone (Medrol) 4 mg PO DAILY [facility] Last Admin: 06/12/18 10:10 Dose: 4 mg Mineral Oil/White Petrolatum (Eucerin Cream) 0 gm TOP BIDPRN PRN PRN Reason: Dry Skin Ondansetron HCl (Zofran Odt) 4 mg PO Q6H PRN PRN Reason: Nausea/Vomiting Ondansetron HCl (Zofran) 4 mg IVP Q6H PRN PRN Reason: Nausea/Vomiting Pantoprazole Sodium (Protonix) 40 mg PO [facility] Last Admin: 06/11/18 20:34 Dose: 40 mg Phenol (Chloraseptic [place] 180 Ml Bot) 0 ml PO PRN PRN PRN Reason: Sore Throat Saccharomyces Boulardii (Florastor) 250 mg PO DAILY [facility] Last Admin: 06/12/18 10:10 Dose: 250 mg Senna (Senokot) 2 tab PO HSPRN PRN PRN Reason: Constipation Sildenafil Citrate (Revatio) 20 mg PO HS [facility] Last Admin: 06/11/18 20:24 Dose: 20 mg Sodium Chloride (Flush - Normal Saline) 10 ml IVF Q12HR [facility] Last Admin: 06/12/18 10:11 Dose: 10 ml Sodium Chloride (Flush - Normal Saline) 10 ml IVF PRN PRN PRN Reason: Saline Flush Sodium Chloride ([place] Nasal [place] 0.65%) 0 ml EA NARE QIDPRN PRN PRN Reason: Nasal Congestion Temazepam (Restoril) 15 mg PO HSPRN PRN PRN Reason: Insomnia
--- NOTE | 2018-06-12 12:56 | DIS ---
DATE OF ADMISSION: 06/09/2018 DATE OF DISCHARGE: 06/12/2018 PRIMARY CARE PHYSICIAN: Ivelisse Darling M.D. DISCHARGE DISPOSITION: Home. PRIMARY DISCHARGE DIAGNOSES: 1. Systemic inflammatory response syndrome criteria, improved. 2. Lactic acidosis, resolved. SECONDARY DISCHARGE DIAGNOSES: Pancytopenia, transaminitis, hypothyroidism, microcytic anemia, Raynaud's phenomena, rheumatoid arthritis, systemic sclerosis. PRIMARY PROCEDURE/OPERATION: Skin biopsy. RADIOLOGICAL INVESTIGATION: Chest x-ray, suspected for nodular infiltration, but subsequently CT chest, abdomen and pelvis did not show that infiltration. Fatty liver was identified. SIGNIFICANT LABORATORY DATA: WBC 3.6, hemoglobin 10.0, platelet 111,000. Creatinine 0.57. Lactic acid 2.1. Ferritin 52.9. Lactate dehydrogenase 343. CRP 1.46, AST 119, ALT 132, alkaline phosphatase 90, albumin 3.6, lipase 19. Urinalysis, microscopic hematuria. test negative. Complements low with C3, 37 and C4, 2.9. Hepatitis profile negative. HIV negative. Legionella and Streptococcal pneumoniae antigen negative. Blood culture negative. Influenza and virus panel negative. Urine culture grew Streptococcus. DISCHARGE MEDICATIONS: Plaquenil 200 mg p.o. daily, levothyroxine 100 mcg p.o. daily, Medrol 4 mg p.o. daily, Omnicef 300 mg p.o. b.i.d., bacitracin topical application as directed, calcium with vitamin D 1 tablet p.o. b.i.d., vitamin D3 1000 unit p.o. at bedtime, vitamin B12 1000 mcg p.o. daily, ferrous sulfate 325 mg p.o. daily, Protonix 40 mg p.o. at bedtime, Florastor 250 mg p.o. daily, sildenafil 20 mg p.o. daily. CONTRAINDICATIONS: None. CODE STATUS: Full code. INPATIENT CONSULTANTS: Dr. Veras was consulted while in hospital. Dr. Ashby was consulted for skin biopsy. TEST RESULTS PENDING ON DISCHARGE: None. ALLERGIES: No known drug allergy. DISCHARGE PLAN: Post hospital, the patient will follow up with primary care physician in 1 week. 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 HOSPITAL COURSE: A 38-year-old female who has underlying history of systemic sclerosis with lupus overlapping syndrome as well as suspected rheumatoid arthritis who is following Rheumatology in [place]. She was having intermittent fever and tachycardia, though she was overall feeling better, but she was experiencing chills, fever, tachycardia and that is why she decided to go to emergency room and subsequently she was admitted for sepsis/SIRS criteria. On admission, she had bandemia and subsequently she had pancytopenia. She had lactic acidosis. Her LFT was abnormal. Her CRP was elevated. The patient had a pool workup done during this admission. Her culture remained negative. Viral panel negative. Urine culture also showed only Streptococcus. During this admission, we found that she has low compliment. We are thinking that this patient has underlying rheumatoid disease , which is not well controlled and she might have underlying vasculitis because the patient has a skin lesion around left axilla as well as tip of the toes. 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 At this point, we are suspecting that the patient's fever is most likely related with her uncontrolled autoimmune disorder rather than infection. All cultures remained negative. While in hospital, we gave her cefepime and vancomycin. Subsequently, vancomycin was discontinued and now we are changing to Omnicef for 5 more days. The patient is on chronic steroid therapy and that is why we prescribed some medication to prevent and reduce side effects. The patient is overall doing very well. We will follow up on the send out result and will send that result to her hydraulic bull riveter operator. The patient is seen and examined at bedside today. She will follow up with primary care physician as instructed. CAMILLE
[2018-06-12 13:27] VITALS: BP 117/79; TEMP 98.9
[2018-06-12 17:16] LABS: ANA Symphony (Qualitative) POSITIVE (Negative); CENP IgG Antibody 0.8 EliAU/mL (<7 Negative); Jo-1 IgG Antibody Less than 0.3 EliAU/mL (<7 Negative); RNP70 IgG Antibody 0.6 EliAU/mL (<7 Negative); SSA/Ro IgG Antibody Greater than 240.0 EliAU/mL (<7 Negative); SSB/La IgG Antibody Less than 0.3 EliAU/mL (<7 Negative); Scleroderma-70 IgG Antibody 0.9 EliAU/mL (<7 Negative)
[2018-06-13] MEDS ORDERED: Bacitracin Zinc 1 Packet TOP SCH (09:00)
--- NOTE | 2018-06-15 12:33 | PQF ---
MALINA RYAN DAVID R MD [id number] CLINICAL DOCUMENTATION CLARIFICATION FORM: POST DISCHARGE Addendum to original discharge summary date: ____ Late entry note date: __ DATE: 06/15/18 ATTN: Please exercise your independent, professional judgment in responding to the clarification form. Clinical indicators are provided on the bottom of this form for your review Please check appropriate box(es): [ ] Sepsis due to: (Pna, UTI, gangrenous gall bladder, etc.) Due to: [ ] Device (please specify) [ ] Implant [ ] Graft [ ] Infusion [ ] SIRS due to non-infectious process (please specify etiology) [ ] with organ dysfunction [ ] without organ dysfunction [ ] Severe sepsis with acute organ dysfunction of: (Examples: respiratory failure, encephalopathy, acute kidney failure, other) [ ] Septic Shock [ ] Localized infection without sepsis [ ] Other diagnosis [ x] Unable to determine In addition, please specify: Present on Admission (POA): [ ] Yes [ ] No [ ] Unable to determine For continuity of documentation, please document condition throughout progress notes and discharge summary. Thank You. CLINICAL INDICATORS - SIGNS / SYMPTOMS / LABS Fever or hypothermia (<96.8 F/36 C or > 100.4 F/38C) Respiratory rate >20/min, Hypoxemia, Metabolic acidosis Lactic Acid >2mmol/L, WBC count (>12,000/mm^4 or <4000/mm^3 or 10% neuts, 10% bands) RISK FACTORS Infection/Bacteremia Immunosuppression MTDD
[2018-06-15 17:11] LABS: Cytoplasmic (C-ANCA) <1:20 titer (Neg:<1:20); Perinuclear (P-ANCA) <1:20 titer (Neg:<1:20)
[2018-06-16 16:14] LABS: Brucella IgM Ab Equivocal (Negative)
== END 2018-06-12 14:26 | disposition home or self-care (01) | DRG 546 ==
LOC: SCSER 13:46 → T4-B 15:47
PROVIDERS: ADMIT Internal Medicine; ATTEND Internal Medicine
DX: M05.20 Rheumatoid vasculitis with rheumatoid arthritis of unspecified site (principal); M35.8 Other specified systemic involvement of connective tissue; E87.2 Acidosis; D61.818 Other pancytopenia; M31.8 Other specified necrotizing vasculopathies; R65.10 Systemic inflammatory response syndrome (SIRS) of non-infectious origin without acute organ dysfunction; E03.9 Hypothyroidism, unspecified; D64.9 Anemia, unspecified; I73.00 Raynaud's syndrome without gangrene; M34.9 Systemic sclerosis, unspecified; M32.9 Systemic lupus erythematosus, unspecified; I27.20 Pulmonary hypertension, unspecified; Z79.899 Other long term (current) drug therapy; R91.8 Other nonspecific abnormal finding of lung field
CPT/HCPCS: 36415; 71046; 71260; 74177; 80048; 80053; 80074; 80202; 81003; 81015; 81025; 82728; 83605; 83615; 83690; 85025; 86038; 86140; 86160; 86225; 86235; 86256; 86622; 87040; 87070; 87086; 87205; 87389; 87633; 87804; 87899; 88305; 96365; A4216; J0692; J1956; J3370; J7050

== ENCOUNTER 2020-07-19 12:58 | Inpatient (IN) | payer OTHER ==
--- NOTE | 2020-07-19 13:44 | RAD ---
EXAM: CHEST ONE VIEW HISTORY: Chest pain. COMPARISON: 06/10/2018 FINDINGS: Cardiac silhouette is magnified by projection. Pulmonary vasculature is within normal limits. Calcifi ed granulomata are again seen in the left lung base. No consolidation or pleural fluid is seen. Calcified right paramediastinal lymph node is again seen. No other interval change. IMPRESSION: No acute cardiopulmonary process.
[2020-07-19] MEDS ORDERED: Pantoprazole 40 MG VIAL ONE (14:30)
[2020-07-19] MEDS ORDERED: Aspirin Chewable 81 MG TAB ONE (14:30)
[2020-07-19 14:36] LABS: #Lymphocytes 0.1 thou/uL (1.20-3.40); #Monocytes 0.3 thou/uL (0.11-0.59); #Neutrophils 5.4 thou/uL (1.40-6.50); %Basophils 0.6 % (0.0-1.0); %Eosinophils 0.3 % (0.0-10.0); %Lymphocytes 1.7 % (21.0-51.0); %Monocytes 4.7 % (0.0-10.0); %Neutrophils 92.7 % (42.0-75.0); Hemoglobin 10.8 g/dL (12.0-16.0); Mean Corpuscular Hemoglobin 28.2 pg (27.0-31.0); Mean Corpuscular Volume 85.4 fL (78.0-98.0); Mean Platelet Volume 9.9 fL (7.4-10.4); Platelet Count 151 thou/uL (130-400); RBC Distribution Width 14.7 % (11.5-14.5); Red Blood Cell (RBC) Count 3.84 mill/uL (4.20-5.40); White Blood Cell (WBC) Count 5.8 thou/uL (4.8-10.8)
[2020-07-19 15:01] LABS: ALT (SGPT) 21 U/L (8-55); AST (SGOT) 32 U/L (5-34); Albumin 3.6 g/dL (3.5-5.0); Alkaline Phosphatase 67 U/L (40-110); Anion Gap 13 mmol/L (10-20); BUN (Urea Nitrogen) 5 mg/dL (7.0-18.7); Bilirubin, Total 0.3 mg/dL (0.2-1.2); CK (CPK) 115 U/L (29-168); Calc. Creatinine Clearance 0 mL/min (70-130); Calcium 8.7 mg/dL (7.8-10.44); Carbon Dioxide 24 mmol/L (22-29); Chloride 96 mmol/L (98-107); Estimated GFR-MDRD Greater than 90; Globulin 4.6 g/dL (2.4-3.5); Glucose 103 mg/dL (70-105); Lipase 23 U/L (8-78); Potassium 4.6 mmol/L (3.5-5.1); Protein, Total 8.2 g/dL (6.0-8.3); Sodium 128 mmol/L (136-145)
[2020-07-19 16:12] LABS: BHCG - Serum Negative (NEGATIVE); Pregs Control Background? CLEAR/WHITE (CLR/WHITE); Pregs Control Bar Appear? YES (CONTROL BAR)
--- NOTE | 2020-07-19 16:59 | CT ---
CT ANGIOGRAM THORAX WITH IV CONTRAST AND 3-D RECONSTRUCTIONS CLINICAL INDICATION: Intermittent epigastric abdominal pain. COMPARISON: CT thorax on 06/10/2018 FINDINGS: Pulmonary arteries: No filling defects are seen in the pulmonary arteries to suggest a pulmonary embo julienne. Aorta: The aorta is normal in caliber without evidence of an aortic dissection. Lungs: Few scattered thin-walled cysts are seen within the bilateral lower lobe stable compared to st [facility] in 2018. Calcified granulomata are again seen in the left lung base. Mild chronic lung changes are seen with peripheral interstitial densities which may be related to areas of mild scarring. No co nsolidation or pleural fluid is identified. Mediastinum: Calcified lymph nodes are present. The heart is borderline enlarged. The distal esophagu s is distended with small amount of fluid and gas. This is stable finding compared to prior study in 2018 and is also stable when compared to study on 07/08/2017. Small hiatal hernia is present. Ther e are mildly prominent prevascular space lymph nodes, but this is a stable finding. Thyroid gland: Within normal limits where visualized. Osseous structures: No suspicious lytic or sclerotic osseous lesion. Chest wall: No abnormality visualized. Upper abdomen: The upper abdomen is incompletely imaged. There is suggestion of mild inflammatory str anding seen adjacent to the tail of the pancreas. These findings could potentially be secondary to pancreatitis, this is incompletely evaluated on this exam. Correlation with pancreatic enzymes is rec ommended. IMPRESSION: 1. Mild inflammatory stranding adjacent to the tail of the pancreas. This is nonspecific and incomple tely imaged, but findings could potentially be related to pancreatitis. Correlation with pancreatic enzymes, and follow-up CT abdomen is recommended. 2. No CT evidence of a pulmonary embolus. 3. Mild chronic lung changes. 4. Stable mild dilatation of the distal esophagus with fluid and gas present in this dilated portion of the esophagus. This is unchanged dating back to study in 2017. There is a small hiatal hernia present.
[2020-07-19] MEDS ORDERED: Lidocaine 2% Viscous Solution 10 ML, Aluminum & Magnesium Hydroxide 30 ML SSW SCH ×2 (17:30→22:30)
[2020-07-19] MEDS ORDERED: Sodium Chloride 0.9% 1,000 ML IV SCH ×2 (18:00→18:43)
[2020-07-19] MEDS ORDERED: Morphine 4 MG/ML VIAL ONE (18:16)
[2020-07-19 18:25] LABS: Troponin I Less than 0.010 ng/mL (< 0.028)
--- NOTE | 2020-07-19 19:42 | HP ---
PRIMARY CARE PHYSICIAN: Dr. Darling. CHIEF COMPLAINT: Abdominal pain. HISTORY OF PRESENT ILLNESS: The patient is a 40-year-old female, who comes into the hospital with complaints of epigastric pain and mid chest pain radiating to her back going on since Friday. She stated that she is normally on Protonix and has been compliant with her medications. She stated that she initially had pain on her epigastric area, which she attributed to possible heartburn. She took Tums, which did not relieve her pain. However, on Friday, her pain radiated to her back, which worsened in nature. She also stated that when she was eating any solids or any hard foods, initial swallow was not a problem, as the food bolus went down into her esophagus, she started having more pain around her distal esophagus area. She then called her family friend doctor, who prescribed her some Carafate and recommended her to eat soft foods, which she did. She states that she is hungry. She has been able to eat soft foods, unable to keep things down. No nausea or vomiting. She denies any fevers or chills. She has never had an endoscopy. She does have a history of scleroderma and Raynaud, which she is compliant with her medications. The patient denies any chest pain or chest tightness. PAST MEDICAL HISTORY: She has notable for rheumatoid arthritis, hypothyroidism, CREST/Raynaud phenomenon, and scleroderma. PAST SURGICAL HISTORY: She denies. REVIEW OF SYSTEMS: Denies any weight loss or any decrease of appetite. All the review of systems negative. SOCIAL HISTORY: She denies any alcohol use, tobacco use, or drug use. She is , lives with her and her primary care doctor is Dr. Darling and her paraffin machine operator is Dr. Perla Sams. FAMILY HISTORY: Her mother had some hypertension. Father is healthy. ALLERGIES: SHE HAS NO KNOWN DRUG ALLERGIES. MEDICATIONS: As of the following; 1. Prednisone 5 mg p.o. daily. 2. Sildenafil 20 mg t.i.d. 3. Hydroxychloroquine one p.o. daily. 4. Azathioprine 50 mg t.i.d. 5. Pantoprazole 40 mg daily. 6. Lisinopril 10 mg daily. 7. Sucralfate, which was a new prescription 1 g q.i.d. 8. Levothyroxine 100 mcg daily. PHYSICAL EXAMINATION: VITAL SIGNS: As of the following; temperature of 98.1, respirations of 20, O2 saturations of 100% on room air, blood pressure of 122/89, and heart rate of 74. GENERAL: She is awake, alert, and oriented x3. Does not appear in any distress. CV: S1 and S2 present. No murmurs, rubs, or gallops. LUNGS: Clear to auscultation. No rhonchi or wheezes noted. ABDOMEN: Soft. Bowel sounds are present x2. She does have some mild pain upon palpation to her epigastric area, which is reproducible on palpation. NEUROLOGIC: Neurovascular bro, no focal deficits noted. SKIN: No cuts, lesions, or bruises noted. MUSCULOSKELETAL: She does have some pain to her mid back area on palpation. LABORATORY RESULTS: As of the following, her troponin x1 was negative. EKG did not show any acute ST elevation. Her CRP was mildly elevated at 2.16. She had a CTA, which indicated mild inflammatory stranding adjacent to the tail of the pancreas. There is nonspecific and incomplete image, but possible pancreatitis. She has some chronic lung changes. No pulmonary embolism was noted. She does have a stable mild dilation of the distal esophagus with fluid and gas present in the distal portion of the esophagus. This is unchanged from back study in 2017 and there is a small hiatal hernia present. Her test was negative. D-dimer was mildly elevated at three. BNP was normal. CPK was normal. Lipase was 23. Sodium of 128, potassium of 4.6, BUN of 5, and creatinine of 0.61. Her LFTs were normal. WBCs 5.8, hemoglobin of 10.8, hematocrit of 32.8, and her platelets were 151. ASSESSMENT AND PLAN: The patient is a very pleasant 40-year-old female who presents to the hospital with complaints of epigastric pain. 1. Acute mild pancreatitis. The patient's lipase is normal; however, she does have mildly elevated CRP. We will start her on some IV hydration. Keep her n.p.o., may progress to clear liquid if tolerates. We will start her on some Protonix twice a day. We will get a right upper quadrant ultrasound. She is not a drinker. 2. Epigastric pain. She does have some changes on the CAT scan; however, the CAT scan states that this was unchanged back from study in 2017. She has never had an endoscopy. This is something that she most likely will require. We will keep her on Protonix. We will start her on some Carafate. We will also give her GI cocktail to see if this helps. Continue to monitor. May consider getting a Gastroenterology consult. 3. Raynaud/CREST syndrome. We will start patient on her home medications and continue to monitor. 4. Deep venous thrombosis prophylaxis. We will put the patient on sequential compression devices and subcu heparin. 5. Hyponatremia could be multifactorial. We will check some urine electrolytes and serum osmolality. 6. She also has a calcified granuloma and few scattered thin-walled cyst, which again this appears stable since 2018 study. We will continue to monitor those. The patient has been notified about this. Job ID: [id number]
[2020-07-19] MEDS: Sodium Chloride 0.9% 1,000 ML IV SCH (20:25)
[2020-07-19 20:46] LABS: Troponin I Less than 0.010 ng/mL (< 0.028)
[2020-07-19] MEDS ORDERED: Atropine Sulfate 1 mg/10 ml Syringe ONE (21:05)
[2020-07-19 21:23] VITALS: BMI 25.4
[2020-07-19] MEDS: Pantoprazole 40 MG VIAL IVP SCH (22:00)
[2020-07-20 06:01] LABS: #Lymphocytes 0.2 thou/uL (1.20-3.40); #Monocytes 0.4 thou/uL (0.11-0.59); #Neutrophils 2.3 thou/uL (1.40-6.50); %Basophils 0.8 % (0.0-1.0); %Eosinophils 1.3 % (0.0-10.0); %Lymphocytes 7.5 % (21.0-51.0); %Monocytes 12.8 % (0.0-10.0); %Neutrophils 77.6 % (42.0-75.0); Mean Corpuscular HGB CONC 31.6 g/dL (32.0-36.0); Mean Corpuscular Hemoglobin 27.5 pg (27.0-31.0); Mean Corpuscular Volume 86.9 fL (78.0-98.0); Mean Platelet Volume 10.5 fL (7.4-10.4); Platelet Count 133 thou/uL (130-400); RBC Distribution Width 14.6 % (11.5-14.5); Red Blood Cell (RBC) Count 3.65 mill/uL (4.20-5.40)
[2020-07-20] MEDS: Sodium Chloride 0.9% 1,000 ML IV SCH ×2 (06:09→13:41)
[2020-07-20 06:30] LABS: ALT (SGPT) 17 U/L (8-55); AST (SGOT) 25 U/L (5-34); Albumin 2.8 g/dL (3.5-5.0); Alkaline Phosphatase 54 U/L (40-110); Anion Gap 10 mmol/L (10-20); BUN (Urea Nitrogen) Less than 4 mg/dL (7.0-18.7); Bilirubin, Total 0.2 mg/dL (0.2-1.2); Calc. Creatinine Clearance 123 mL/min (70-130); Calcium 7.8 mg/dL (7.8-10.44); Carbon Dioxide 19 mmol/L (22-29); Chloride 109 mmol/L (98-107); Estimated GFR-MDRD Greater than 90; Globulin 4.1 g/dL (2.4-3.5); Glucose 93 mg/dL (70-105); Potassium 3.8 mmol/L (3.5-5.1); Protein, Total 6.9 g/dL (6.0-8.3); Sodium 134 mmol/L (136-145)
--- NOTE | 2020-07-20 07:31 | ULT ---
EXAM: US Gallbladder RUQ CLINICAL HISTORY: Epigastric pain. COMPARISON: 12/11/2012 FINDINGS: Pancreas: The head and proximal pancreatic body have a normal echotexture. Liver:Hepatic parenchyma has a normal echotexture. No hepatic masses or intrahepatic biliary dilatati on. Right hepatic lobe: 17.7 cm Gallbladder: No sonographic evidence of cholelithiasis, gallbladder wall thickening or pericholecysti c fluid. Rashid's sign:Negative Portal Vein: Patent. Appropriate directional flow Bile ducts: 0.33 cm common bile duct diameter Right kidney: No hydronephrosis. Right kidney measures 4.6 x 4.8 x 14 cm in length. Anechoic focus ad jacent to the right lower pole cortex measures 4.3 x 4.1 x 3.7 cm IMPRESSION: 1. No sonographic evidence of cholelithiasis or cholecystitis 2. Anechoic focus adjacent to the right lower pole cortex. CT 06/10/2018 also does not demonstrate a c yst but does demonstrate a prominent extrarenal pelvis. A forementioned anechoic focus adjacent to the right lower pole cortex may in fact be an extrarenal pelvis. As a conservative measure, 3 month f ollow-up renal ultrasound can be performed.
[2020-07-20] MEDS ORDERED: predniSONE 5 MG TAB PO SCH ×2 (08:00→09:00)
[2020-07-20] MEDS: Pantoprazole 40 MG VIAL IVP SCH ×2 (08:35→21:58)
[2020-07-20] MEDS ORDERED: Non-Formulary Item 1 EACH (Sildenafil Citrate [Sildenafil Citrate] 20 MG Tablet) PO SCH (09:00)
[2020-07-20] MEDS ORDERED: Levothyroxine Sodium 88 MCG TAB PO SCH (09:00)
[2020-07-20] MEDS ORDERED: azaTHIOprine 50 MG TAB PO SCH ×3 (09:00)
[2020-07-20] MEDS ORDERED: Aspirin 325 mg Enteric Coated Tablet PO SCH (09:00)
[2020-07-20] MEDS: predniSONE 5 MG TAB PO SCH (09:32)
[2020-07-20] MEDS: Hydroxychloroquine Sulfate 200 MG TAB PO SCH (09:32)
[2020-07-20] MEDS: Sildenafil Citrate 20 MG TAB PO SCH (09:32)
[2020-07-20 12:56] LABS: SARS-CoV-2 MS2 Positive; SARS-CoV-2 N Gene Negative; SARS-CoV-2 S Gene Negative; SARS-CoV-2 by NAA Not Detected (NotDetected); SARS-CoV-2 orf1ab Negative
--- NOTE | 2020-07-20 13:37 | CON ---
DATE OF CONSULTATION: 07/20/2020 REQUESTING PHYSICIAN: Milagros Delgado MD REASON FOR CONSULTATION: Epigastric pain and esophageal dilation. HISTORY OF PRESENT ILLNESS: Dwaine Ma is a very pleasant 40-year-old woman, who was admitted to the hospital yesterday afternoon with chest pain, dysphagia, and odynophagia. She has a history significant for scleroderma and Raynaud's, characterized as CREST syndrome and hypothyroidism. She takes low-dose prednisone as well as azathioprine and hydroxychloroquine. She says for the past couple of years, she has been taking pantoprazole 40 mg daily, dealing with some intermittent mild heartburn issues, which had not been significant before, but then about 5 days ago, she started having pain in the very lower part of the chest close to the epigastrium. She tried taking some Tums, which did not seem to help. The following day, the pain started radiating through to her back. She trialed sucralfate for several days, but this did not seem to give any improvement. The pain started to be worse with deep inspiration and also much worse with any oral intake, liquids go down without any problem, though it is mildly uncomfortable, but solid food causes significant worsening of the pain in the lower chest. There has not been any regurgitation of food particles. She is able to keep down liquids without any problem and even solids go down, it just hurts. Upon presentation yesterday, she had a CT angiogram of the chest and this ruled out pulmonary embolus. She does have a small hiatal hernia as well as chronic unchanged appearance of the distal esophagus with distention and fluid and gas within the distal esophagus, but this is stable from multiple prior CTs through the years. The CT also demonstrated some possible mild stranding of the pancreatic tail, though this was incompletely imaged. Laboratories did show an elevated D-dimer and CRP, though her lipase was only 23 and LFTs normal. She has been n.p.o. today. The chest discomfort still persists, though it has slightly improved. She is getting pantoprazole 40 mg IV twice daily. COVID screen was sent and is pending. She has never undergone upper endoscopy. REVIEW OF SYSTEMS: Full review of systems including constitutional, head, eyes, ears, nose, throat, GI, , cardiovascular, respiratory, musculoskeletal, neurologic systems is negative except as noted in the HPI. PAST MEDICAL HISTORY: Scleroderma, Raynaud's syndrome, rheumatoid arthritis, hypothyroidism, and CREST syndrome. ALLERGIES: NO KNOWN DRUG ALLERGIES. OUTPATIENT MEDICATIONS: 1. Prednisone 5 mg daily. 2. Azathioprine 50 mg t.i.d. 3. Hydroxychloroquine. 4. Sildenafil. 5. Lisinopril. 6. Levothyroxine. 7. Protonix 40 mg daily. FAMILY HISTORY: Noncontributory. SOCIAL HISTORY: No smoking, alcohol, or drug use. PHYSICAL EXAMINATION: VITAL SIGNS: Temperature 98.0, pulse 86, blood pressure 118/80, and oxygen saturation 98% on room air. GENERAL: A 40-year-old woman lying in bed comfortably, in no acute distress. SKIN: No jaundice. No rashes were palpable. EYES: No scleral icterus. Extraocular movements intact. ENT: Mucous membranes moist. No oral lesions. LYMPH: No submandibular or supraclavicular lymphadenopathy. THYROID: Nontender to palpation. HEART: Regular rate and rhythm. LUNGS: Clear to auscultation bilaterally. ABDOMEN: Bowel sounds present. Soft, nontender to palpation including palpation of the epigastrium. She locates the discomfort in the lower sternal area. EXTREMITIES: No peripheral edema. VESSELS: Radial pulses 2+ bilaterally. NEURO: Cranial nerves II through XII intact bilaterally. No focal deficits. LABORATORY STUDIES: WBC 3.0, hemoglobin 10.0, platelets 133, and MCV is 86.9. D-dimer elevated to 3.02. Sodium 134, potassium 3.8, BUN less than 4, creatinine 0.56, and glucose 93. LFTs all normal with total bilirubin 0.2, alkaline phosphatase 54, AST 25, ALT 17, and albumin 2.8. Troponin negative. test negative. CRP elevated to 2.16. Lipase normal at 23. BNP normal at 24.3. IMAGING STUDIES: Chest x-ray showed no acute processes. CTA of the chest showed no pulmonary embolus. There are some chronic lung changes. A small hiatal hernia. Distention of the distal esophagus with fluid and gas, but this is stable in appearance from prior imaging over the past couple of years. There is possible mild stranding of the pancreatic tail, but this is incompletely imaged. Abdominal ultrasound shows normal-appearing liver, gallbladder, and common bile duct of 3 mm. ASSESSMENT AND PLAN: 1. Chest pain, likely esophageal. 2. Dysphagia and odynophagia, new over the past 5 days. I think the symptoms are likely related to esophageal pathology. People with scleroderma are at high risk for erosive esophagitis and fibrosis due to underlying disease as well as dysmotility. It is possible she may have experienced some pill esophagitis on top of this, or possibly Linda esophagitis, etc. People with scleroderma are also at some increased risk of esophageal malignancy. We are going to plan for diagnostic upper endoscopy tomorrow. In the meantime, continue with the pantoprazole 40 mg IV q.12 hours, and supportive cares. COVID screen has been sent and is pending. 3. Abnormal CT scan, suggesting possible mild pancreatic tail inflammatory stranding. I doubt that this truly represents pancreatitis, given the normal lipase, uncharacteristic symptoms, normal pancreatic head and body appearance on the ultrasound. Even so, I do think this is worth investigating further, as if she does have pancreatitis, the azathioprine may be implicated. This afternoon, we will go ahead and get dedicated CT imaging of the abdomen for better look at the pancreas. In the meantime, keep the patient n.p.o., with IV fluids, other supportive care. Thank you for the consultation. Further recommendations following upper endoscopy tomorrow. Job ID: [id number]
[2020-07-20] MEDS ORDERED: Iopamidol-370 76% 500 ML 1 ML ONE (14:17)
--- NOTE | 2020-07-20 17:46 | CT ---
CT abdomen with IV and oral contrast HISTORY: Abnormal CT scan. Pancreatitis. COMPARISON: CT chest 07/19/2020. CT abdomen 06/10/2018. FINDINGS: Chronic scarring and calcified granulomata at the lung bases again demonstrated. Gaseous di stention of the lower esophagus is unchanged from recent exams. The pancreas is normal appearance on this exam. No mass, inflammation, or adjacent fat stranding appa rent. Perhaps motion artifact and vasculature accounts for the density on the recent CT chest that raised concern in this area. Slightly enlarged, reactive appearing lymph nodes along the length of the left retroperitoneum are ap parent. Unchanged in appearance from 06/10/2018 exam. No evidence of bowel obstruction. The pelvis was not imaged. IMPRESSION : Normal CT appearance of the pancreas. No evidence of pancreatitis. Chronic-type findings as detailed above, stable
[2020-07-20] MEDS ORDERED: Prevnar 13-Val Conj/PF 0.5 ML SYRINGE IM ONE (21:00)
[2020-07-20] MEDS ORDERED: Sodium Chloride 0.9% 1,000 ML IV SCH (22:51)
--- NOTE | 2020-07-20 22:55 | PDOC.HOSPP ---
- Subjective Encounter Date: 07/20/20 Encounter Time: 17:30 Subjective: Patient seen and examined for epigastric discomfort. No significant change in the pain. Denies any nausea or vomiting. - Objective Vital Signs & Weight: Vital Signs (12 hours) Temp Pulse Resp BP Pulse Ox 07/20/20 16:00 97.9 F 81 16 118/88 100 07/20/20 11:53 98.0 F 84 16 108/73 100 Weight Weight 130 lb I&O: 07/19/20 07/20/20 07/21/20 06:59 06:59 06:59 Intake Total 1320 Balance 1320 Result Diagrams: 07/20/20 05:32 07/20/20 05:32 Additional Labs: Abnormal Lab Results - Last 48 hrs 07/19/20 14:04: Sodium 128 L, Chloride 96 L, BUN 5 L, Globulin 4.6 H, Albumin/Gl obulin Ratio 0.8 L 07/19/20 14:04: RBC 3.84 L, Hgb 10.8 L, Hct 32.8 L, RDW 14.7 H, Neutrophils % 92.7 H, Lymphocytes % 1.7 L, Lymphocytes # 0.1 L 07/19/20 14:04: D-Dimer 3.02 H 07/19/20 17:55: C-Reactive Protein 2.16 H 07/19/20 20:15: ESR Westergren 83 H 07/20/20 05:32: Sodium 134 L, Chloride 109 H, Carbon Dioxide 19 L, BUN Less than 4 L, Creatinine 0.56 L, Albumin 2.8 L, Globulin 4.1 H, Albumin/Globulin Ratio 0.7 L 07/20/20 05:32: WBC 3.0 L, RBC 3.65 L, Hgb 10.0 L, Hct 31.8 L, MCHC 31.6 L, RDW 14.6 H, MPV 10.5 H, Neutrophils % 77.6 H, Lymphocytes % 7.5 L, Monocytes % 12.8 H, Lymphocytes # 0.2 L Radiology Reviewed by me: Yes (CT abdomen reviewed) Hospitalist ROS - Review of Systems Respiratory: denies: cough, dry, shortness of breath, hemoptysis, SOB with excertion, pleuritic pain, sputum, wheezing, other Cardiovascular: denies: chest pain, palpitations, orthopnea, paroxysmal noc. dyspnea, edema, light headedness, other - Medication Medications: Active Medications Generic Name Dose Route Start Last Admin Trade Name Jamilah PRN Reason Stop Dose Admin Hydroxychloroquine Sulfate 200 mg 07/20/20 09:00 07/20/20 09:32 Hydroxychloroquine Sulfate 200 Mg Tab PO 200 mg DAILY KIRAN Administration Pantoprazole Sodium 40 mg 07/19/20 21:00 07/20/20 21:58 Pantoprazole 40 Mg Vial IVP 40 mg Q12HR KIRAN Administration Prednisone 10 mg 07/20/20 09:00 07/20/20 09:32 Prednisone 5 Mg Tab PO 10/17/20 09:01 5 mg DAILY KIRAN Administration Sildenafil Citrate 20 mg 07/20/20 09:00 07/20/20 09:32 Sildenafil Citrate 20 Mg Tab PO 20 mg DAILY KIRAN Administration Sodium Chloride 10 ml 07/20/20 21:00 07/20/20 21:58 Flush - Normal Saline 10 Ml Syringe IVF 10 ml Q12HR KIRAN Administration - Exam General Appearance: NAD Neck: supple, no JVD Heart: no gallops, no rubs Respiratory: CTAB, no wheezes, no ronchi Gastrointestinal: soft, no guarding, no rigidity Gastrointestinal - other findings: Mild epigastric tenderness Extremities: no cyanosis Hosp A/P - Plan DVT proph w/SCDs Atypical chest pain History of dysphagia/odynophagia History of rheumatoid arthritis/scleroderma Hypothyroidism Hyponatremia Chronic anemia suspected due to nutritional deficiency Plan: Continue clear liquid diet. Npo past midnight for EGD in a.m. Await abdominal CT scan report. Continue IV PPIs. Pain control. Continue other medications as above. Home medications restarted.
[2020-07-21] MEDS ORDERED: Levothyroxine Sodium 100 MCG TAB PO SCH (06:00)
[2020-07-21] MEDS ORDERED: Calcium Carbonate 600 MG + Vit D TAB PO SCH (08:00)
[2020-07-21] MEDS ORDERED: azaTHIOprine 50 MG TAB PO SCH (09:00)
--- NOTE | 2020-07-21 09:21 | OP ---
DATE OF PROCEDURE: 07/21/2020 ASSEMBLY LEADER SURGEON: None. PROCEDURE PERFORMED: EGD, diagnostic. INDICATIONS: 1. Chest pain. 2. Dysphagia. 3. Odynophagia. 4. Scleroderma. MEDICATIONS: See Anesthesia record. FINDINGS: After discussion of the risks, benefits, and alternatives of the procedure, informed consent was obtained and witnessed. Pre-endoscopic cardiopulmonary examination was satisfactory. Time-out was performed before sedation was achieved. Sedation was achieved with Anesthesia assistance in the endoscopy unit. A Pentax adult upper endoscope was placed into the oropharynx and passed through the cricopharyngeus under direct visualization. The proximal and mid esophageal mucosa appeared normal. In the distal esophagus, there is some subtle friability and erythema. There is no evidence of any ulceration or erosion. There is some minimal fibrotic tissue just proximal to the GE junction, but really the entire esophagus and especially the GE junction is widely patulous with no evidence of stricture. This is often seen in scleroderma involvement of the esophagus. The endoscope was advanced into the stomach. Forward and retroflexed views of the entire gastric mucosa were obtained. There is a very small sliding hiatal hernia, but the gastric mucosa is normal. The upper endoscope was advanced through the pylorus and into the first and second portions of the duodenum, which also appeared normal. The upper endoscope was completely withdrawn and the patient allowed to recover. The patient tolerated the procedure well. There were no immediate postprocedure complications. IMPRESSION: 1. Mild distal esophagitis, nonerosive. 2. Widely patulous GE junction. 3. Tiny sliding hiatal hernia. 4. Otherwise normal EGD. RECOMMENDATION: 1. Increase pantoprazole to 40 mg twice daily orally on hospital discharge. 2. Advance diet. 3. Chew food thoroughly. 4. Elevate the head of the bed when sleeping or reclining. GI will sign off. We will have her follow up in GI Clinic with myself or my physician cardiovascular physician assistant in 3 to 4 weeks. Please call back with any questions or concerns. Job ID: [id number]
[2020-07-21] MEDS ORDERED: PROPOFOL 200 MG/20 ML VIAL ONE (09:42)
[2020-07-21] MEDS ORDERED: Lidocaine 1% PF 5 ML VIAL ONE (09:42)
[2020-07-21] MEDS: Pantoprazole 40 MG VIAL IVP SCH (10:26)
[2020-07-21] MEDS: predniSONE 5 MG TAB PO SCH (10:26)
[2020-07-21] MEDS: Sildenafil Citrate 20 MG TAB PO SCH (10:28)
[2020-07-21] MEDS: Hydroxychloroquine Sulfate 200 MG TAB PO SCH (10:32)
[2020-07-21 11:26] VITALS: BP 101/69; TEMP 97.7
--- NOTE | 2020-07-21 21:46 | PDOC.DS.DS ---
Provider - Provider Date of Admission: 07/19/20 18:46 Date of Discharge: 07/21/20 Admitting Provider: Milagros Delgado MD Consultations: Gastroentrology Primary Care Physician: NO PCP PROVIDER Course - Hospital Course Hospital Course: Patient is a 40-year-old female with rheumatoid arthritis on Imuran presented to the emergency room with chest/abdominal pain. Her symptoms got acutely worse for which she presented to the emergency room. She also complains of odynophagia/dysphagia. She denies any history of previous endoscopies. Please refer to the history and physical for further details. The patient was admitted to the hospital with a diagnosis of epigastric/chest pain concerning for acute pancreatitis. Chest x-ray was negative for acute findings. CT angiogram of the chest was negative for pulmonary embolism. It showed mild inflammatory stranding near the tail of pancreas. There was some dilatation of the esophagus with small hiatal hernia. Patient was evaluated by gastroenterology. Lipase was normal. Troponins came back normal. Her CRP was 2.16. GI recommended abdominal CT which showed normal pancreas with slightly enlarged reactive appearing lymph nodes in the left ureter peritoneum unchanged from 2018. She underwent EGD on the day of discharge that showed mild distal esophagitis, nonerosive with tiny sliding hernia. Protonix has been increased to 40 mg bid patient was also advised to chew food thoroughly. She has been cleared by gastroenterology for discharge. Final diagnosis: Atypical chest pain due to esophagitis History of dysphagia/odynophagia History of rheumatoid arthritis/scleroderma Hypothyroidism Hyponatremia Chronic anemia suspected due to nutritional deficiency - Labs Lab Results: 07/20/20 05:32 07/20/20 05:32 Abnormal Lab Results - Last 48 hrs 07/20/20 05:32: Sodium 134 L, Chloride 109 H, Carbon Dioxide 19 L, BUN Less than 4 L, Creatinine 0.56 L, Albumin 2.8 L, Globulin 4.1 H, Albumin/Globulin Ratio 0.7 L 07/20/20 05:32: WBC 3.0 L, RBC 3.65 L, Hgb 10.0 L, Hct 31.8 L, MCHC 31.6 L, RDW 14.6 H, MPV 10.5 H, Neutrophils % 77.6 H, Lymphocytes % 7.5 L, Monocytes % 12.8 H, Lymphocytes # 0.2 L - Physical Exam Vitals: Vital Signs (12 hours) Temp Pulse Resp BP Pulse Ox 07/21/20 11:24 97.7 F 89 16 101/69 97 Weight Weight 130 lb Physical Exam: The patient was seen and examined on the day of discharge. Plan - Discharge Medications Prescriptions: Pantoprazole [Protonix] 40 mg PO BID #60 tab Home Medications: Medication Instructions Recorded Confirmed Type Hydroxychloroquine Sulfate 200 mg PO DAILY 07/03/15 07/19/20 History [Plaquenil] Levothyroxine Sodium 100 mcg PO DAILY 07/03/15 07/19/20 History Sildenafil Citrate 20 mg PO DAILY #0 tablet 07/05/15 07/19/20 Rx Lisinopril 10 mg PO DAILY 07/19/20 07/19/20 History Sucralfate [Carafate] 1 gm PO QID 07/19/20 07/19/20 History azaTHIOprine [Imuran] 100 mg PO DAILY 07/19/20 07/20/20 History predniSONE [Prednisone] 2 tab PO DAILY 07/19/20 07/19/20 History Pantoprazole [Protonix] 40 mg PO BID #60 tab 07/21/20 Rx Allergies: No Known Allergies Allergy (Verified 06/09/18 18:05) - Discharge Instructions Activity:: Activity as Tolerated Nourishment:: Regular Diet Therapies:: Not Applicable Equipment/Supplies:: Not Applicable IV Therapy:: Not Applicable - Follow up Plan Referrals: Segundo Trammell MD [Active] - 3-4 Weeks [facility] [MD Not on Staff] - 7 Days PROVIDER,NO PCP [Primary Care Provider] - Disposition: HOME Quality - Care Measures CORE MEASURES:: N/A
--- NOTE | 2020-07-24 04:01 | PQF ---
CLINICAL DOCUMENTATION CLARIFICATION FORM: Dear : Romero Bertrand Date / Time: 07/24/20 Please exercise your independent, professional judgment in responding to the clarification form. Clinical indicators are provided on the bottom of this form for your review Please check appropriate box(es) to clarify if the following diagnosis has been ruled in our ruled out: Acute Pancreatitis [ ] Ruled in diagnosis [ ] Continue to treat [ ] Resolved [ x ] Ruled out diagnosis [ ] Improving [ ] Cannot rule out diagnosis [ ] Other diagnosis [ ] Unable to determine In addition, please specify: Present on Admission (POA): [ ] Yes [ ] No [ ] Unable to determine Physician Signature: Date/Time: For continuity of documentation, please document condition throughout progress notes and discharge summary. Thank You To be completed by CDI/Coding staff for physician review: Present Clinical Indicators - Signs / Symptoms / Labs Results and Location in Medical Record [X] BP 115/85, Pulse 86, Resp 18, Temp 98.3 Vital signs 07/19 [X] AST 32, ALT 21, Globulin 4.6,Albumin/Globulin Ratio 0.8, Lipase 23 Laboratory 07/19 [X] Abdominal ultrasound Impression: The head and proximal body have a normal echotexture Imaging Dr Pelaez 07/20 [X] CT Abdomen Impression: No evidence of pancteatitis Imaging Dr Childs 07/20 [X] Comes into the hospital with complaints of epigastric pain and mid chest pain radiating to her back H&P p1 07/19 Dr Delgado [X] The patient lipase is normal however she does have mildly elevated CPR H&P p2 07/19 Dr Delgado [X] CT suggesting possible mild pancreatitis, I doubt that this truly represent pancreatitis Consult Dr Trammell 07/20 Present Risk Factors Results and Location in Medical Record [X] RA H&P p1 07/19 Dr Delgado [X] Hypothyroidism H&P p1 07/19 Dr Delgado [X] Raynaud Phenomenon H&P p1 07/19 Dr Delgado [X] Hyponatremia H&P p2 07/19 Dr Delgado Present Treatments Results and Location in Medical Record [X] IVF NS 1L NOV 29 [X] IV Protonix 40 mg Nov 29 [X] IV Morphine 4 mg NOV 29 [X] CT Abdomen Imaging Dr Childs 07/20 [X] Abdominal ultrasound Imaging Dr Pelaez 07/20 [X] NPO H&P p2 07/19 Dr Delgado [X] GI Consult Consult Dr Trammell 07/20 CDS/Periodicals Library Assistant Signature: Hailey Julianne Salomon Phone #: [phone] Date/Time: 07/24/2020 This is a permanent part of the Medical Record [facility]
== END 2020-07-21 13:45 | disposition home or self-care (01) | DRG 392 ==
LOC: ERS 12:58 → T4-B 18:46
PROVIDERS: ADMIT Internal Medicine; ATTEND Internal Medicine
PROC: 3E0234Z Introduction of Serum, Toxoid and Vaccine into Muscle, Percutaneous Approach (ICD-10-PCS; 2020-07-19)
PROC: 0DJ08ZZ Inspection of Upper Intestinal Tract, Via Natural or Artificial Opening Endoscopic (ICD-10-PCS; principal; 2020-07-21)
DX: K20.90 Esophagitis, unspecified without bleeding (principal); E87.1 Hypo-osmolality and hyponatremia; Z20.828 Contact with and (suspected) exposure to other viral communicable diseases; Z23 Encounter for immunization; R13.10 Dysphagia, unspecified; M06.9 Rheumatoid arthritis, unspecified; E03.9 Hypothyroidism, unspecified; D53.9 Nutritional anemia, unspecified; M19.90 Unspecified osteoarthritis, unspecified site; M34.9 Systemic sclerosis, unspecified; I73.00 Raynaud's syndrome without gangrene; M34.1 CR(E)ST syndrome; L92.9 Granulomatous disorder of the skin and subcutaneous tissue, unspecified; K44.9 Diaphragmatic hernia without obstruction or gangrene; Z79.899 Other long term (current) drug therapy; Z79.52 Long term (current) use of systemic steroids; Z79.890 Hormone replacement therapy
CPT/HCPCS: 36415; 71045; 71275; 74160; 76705; 80053; 82550; 83690; 83880; 83930; 83935; 84484; 84703; 85025; 85379; 85652; 86140; 87635; 90471; 90670; 93005; 96374; 96375; C9113; G0009; J0461; J2270; J2704; J7500; J7512; Q9967; U0003